=== PATIENT | male | born 1990 | race Caucasian/White ===

== ENCOUNTER 2021-02-14 14:44 | Outpatient (REF) | payer MEDICAID, SELFPAY ==
[2021-02-14 20:39] LABS: Calculated LDL 77 mg/dL (<100); Cholesterol 138 mg/dL (<200); Glucose 95 mg/dL (74-106); HDL Cholesterol 51 mg/dL (40-60); Triglyceride 53 mg/dL (<150)
== END 2021-02-14 14:45 | disposition home or self-care (01) ==
LOC: NCHCN 14:44
PROVIDERS: PCP Nurse Practitioner Family; Visit Provider Nurse Practitioner Family
DX: Z13.220 Encounter for screening for lipoid disorders (principal); Z13.1 Encounter for screening for diabetes mellitus
CPT/HCPCS: 80061; 82947